=== PATIENT | female | born 2000 | race Caucasian/White ===

== ENCOUNTER → 2020-06-25 | Outpatient (REF) | payer OTHER ==
[2020-06-25 17:50] LABS: APPEARANCE, URINE CLOUDY (CLEAR); BACTERIA, URINE AUTO NEGATIVE (NEGATIVE); BILIRUBIN, URINE AUTO NEGATIVE (NEGATIVE); BLOOD, URINE BLOOD NEGATIVE (NEGATIVE); COLOR, URINE YELLOW (YELLOW); GLUCOSE, URINE (UA) AUTO NEGATIVE (NEGATIVE); KETONE, URINE AUTO NEGATIVE (NEGATIVE); LEUKOCYTE ESTERASE, URINE AUTO NEGATIVE (NEGATIVE); MUCUS, URINE SMALL (NEGATIVE); NITRITE, URINE AUTO NEGATIVE (NEGATIVE); PROTEIN, URINE AUTO NEGATIVE (NEGATIVE); RBC, URINE AUTO 0 /HPF (0-3); SPECIFIC GRAVITY URINE AUTO 1.023 (1.002-1.035); SQUAMOUS EPITHELIAL CELL UR AU 16 /HPF (0-6); UROBILINOGEN, URINE AUTO 0.2 mg/dL (0.0-2.0); WBC, URINE AUTO 4 /HPF (0-3)
== END ==
LOC: M SMT 16:42
PROVIDERS: ATTEND Nurse Practitioner Women's Health
DX: R35.0 Frequency of micturition (principal)

== ENCOUNTER 2025-03-13 17:07 | Emergency (ER) | payer BC, OTHER ==
[2025-03-13] MEDS ORDERED: PRENTAB9 PO (17:32)
[2025-03-13] MEDS ORDERED: ACET-897 PO (17:32)
== END 2025-03-13 17:10 | disposition admitted as inpatient to this hospital (09) ==
LOC: M ED 17:07
DX: Z53.21 Procedure and treatment not carried out due to patient leaving prior to being seen by health care provider (principal)

== ENCOUNTER 2025-03-13 17:17 | Outpatient (CLI) | payer BC, OTHER ==
[~2025-03-13] VITALS: Ht 162.6 cm; Wt 72.7 kg
[2025-03-13] MEDS ORDERED: PRENTAB9 PO (17:32)
[2025-03-13] MEDS ORDERED: ACET-897 PO (17:32)
[2025-03-13 17:35] VITALS: BP 124/73
[2025-03-13] MEDS ORDERED: HOME MED LIST COMPLETE! XX SCH (17:35)
== END 2025-03-13 18:23 | disposition home or self-care (01) ==
LOC: M LDO 17:17
PROVIDERS: ATTEND Specialist
DX: O26.892 Other specified pregnancy related conditions, second trimester (principal); R10.30 Lower abdominal pain, unspecified; N89.8 Other specified noninflammatory disorders of vagina; Z3A.22 22 weeks gestation of pregnancy
CPT/HCPCS: 59025; 76815; G0463